=== PATIENT | male | born 1985 ===

== ENCOUNTER 2017-08-14 17:17 | Emergency (ER) | payer OTHER ==
[~2017-08-14] VITALS: Ht 175.3 cm; Wt 86.0 kg
[2017-08-14 17:31] VITALS: TEMP 36.8; Ht 175.3 cm; Wt 86.0 kg
[2017-08-14] MEDS ORDERED: LIDOCAINE/EPINEPH/TETRACAINE 1 EA SYR ONE (17:38)
[2017-08-14] MEDS ORDERED: DIPHTHERIA/TETANUS/PERTUSSIS 0.5 ML SYR/VIAL IM. ONE (17:45)
[2017-08-14] MEDS ORDERED: XYLOCAINE 1%/SOD BICARB 20 ML VIAL INFIL ONE (17:45)
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
[2017-08-14 19:28] VITALS: BP 121/80; PULSE 71; O2SAT 97
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
== END 2017-08-14 19:29 | disposition home or self-care (01) ==
LOC: EDBD 17:17 → C.EDC 17:18
DX: S01.01XA Laceration without foreign body of scalp, initial encounter (principal); S09.90XA Unspecified injury of head, initial encounter; V43.52XA Car driver injured in collision with other type car in traffic accident, initial encounter; Y92.89 Other specified places as the place of occurrence of the external cause; Z23 Encounter for immunization; F17.200 Nicotine dependence, unspecified, uncomplicated